=== PATIENT | female | born 1970 | race Two or more races ===

== ENCOUNTER 2021-05-29 14:59 | Emergency (ER) | payer SELFPAY ==
[~2021-05-29] VITALS: Ht 167.6 cm; Wt 90.0 kg
[2021-05-29] MEDS ORDERED: KETOROLAC 30 MG/ML VIAL. IVP ONE (19:30)
[2021-05-29] MEDS ORDERED: ONDANSETRON PF 4 MG/2 ML VIAL. IVP ONE (19:30)
--- NOTE | 2021-05-29 19:38 | ED.ADGEN ---
Past Medical History Past Medical History: No Pertinent History Past Surgical History: No Surgical History Smoking Status: Never Smoker Alcohol Use: None General Adult EDM: Chief Complaint: ABDOMINAL PAIN HPI: HPI: Patient is a 50-year-old female presents to the emergency room complaining of the right upper quadrant abdominal pain that started around 10:00 this morning. Patient states it is been constant since onset. She has had pain like this previously but has been quite a while. She states that at that time she saw her primary care doctor who did an ultrasound which was normal. She states that she feels nauseous but has not had any vomiting. She denies diarrhea, constipation, fever, chills, sweats. She has not eaten anything this evening. She has not tried anything for pain. Nothing seems to make her pain better or worse. Review of Systems: Review of Systems: Complete ROS is negative unless otherwise documented in HPI Current Medications: Current Medications Medications (Trade) Dose Ordered Sig/Best Start Time Stop Time Status Last Admin Dose Admin Info (CONTRAST GIVEN -- Rx MONITORING) 1 each PRN DAILY PRN 05/29/21 19:45 05/31/21 19:44 Iohexol (Omnipaque 240 Mg/ml) 40 ml 1X ONCE 05/29/21 19:45 05/29/21 19:46 DC 05/29/21 19:30 40 ML Iohexol (Omnipaque 300 Mg/ml) 75 ml 1X ONCE 05/29/21 19:45 05/29/21 19:46 DC 05/29/21 20:40 75 ML Ketorolac Tromethamine (Toradol 30mg Vial) 30 mg 1X ONCE 05/29/21 19:30 05/29/21 19:31 DC 05/29/21 20:05 30 MG Ondansetron HCl (Zofran) 4 mg 1X ONCE 05/29/21 19:30 05/29/21 19:31 DC 05/29/21 20:04 4 MG Allergies: Allergies: Allergies Coded Allergies Type Severity Reaction Last Updated Verified No Known Medication Allergies Allergy Unknown 01/29/16 Yes Physical Exam: PE: General: Awake, alert, NAD. Well Nourished, well hydrated. Cooperative HEENT: Atraumatic, EOMI, PERRL, airway patent, moist oral mucosa Neck: Supple, trachea midline Respiratory: CTA bilaterally, normal effort, no wheezing/crackles CV: RRR, no murmur, cap refill <2 GI: Soft, nondistended, nontender, no masses MSK: No obvious deformities Skin: Warm, dry, intact Neuro: A&O x3, speech NL, sensory and motor grossly intact, no focal deficits Psych: Normal affect, normal mood, not suicidal or homicidal Current Patient Data: Labs: Laboratory Tests Test 05/29/21 19:22 05/29/21 19:33 05/29/21 19:40 Urine Collection Type Unknown Urine Color Yellow Urine Clarity Cloudy Urine pH 6.0 (<5.0-8.0) Urine Specific [place] 1.020 (1.000-1.030) Urine Protein Negative mg/dL (NEG-TRACE) Urine Glucose (UA) Negative mg/dL (NEG) Urine Ketones (Stick) Trace mg/dL (NEG) Urine Blood Large (NEG) Urine Nitrite Negative (NEG) Urine Bilirubin Negative (NEG) Urine Urobilinogen Dipstick 0.2 mg/dL (0.2 mg/dL) Urine Leukocyte Esterase Negative (NEG) Urine RBC 3-5 /HPF (0-2) Urine WBC Occ /HPF (0-4) Urine Squamous Epithelial Cells Many /LPF Urine Bacteria Few /HPF (0-FEW) Urine Mucus Marked /LPF Urine Yeast Present /HPF White Blood Count 10.5 x10^3/uL (4.0-11.0) Red Blood Count 4.65 x10^6/uL (3.50-5.40) Hemoglobin 12.8 g/dL (12.0-15.5) Hematocrit 38.1 % (36.0-47.0) Mean Corpuscular Volume 82 fL (79-100) Mean Corpuscular Hemoglobin 28 pg (25-35) Mean Corpuscular Hemoglobin Concent 34 g/dL (31-37) Red Cell Distribution Width 14.7 % (11.5-14.5) H Platelet Count 267 x10^3/uL (140-400) Neutrophils (%) (Auto) 70 % (31-73) Lymphocytes (%) (Auto) 21 % (24-48) L Monocytes (%) (Auto) 6 % (0-9) Eosinophils (%) (Auto) 2 % (0-3) Basophils (%) (Auto) 1 % (0-3) Neutrophils # (Auto) 7.4 x10^3/uL (1.8-7.7) Lymphocytes # (Auto) 2.2 x10^3/uL (1.0-4.8) Monocytes # (Auto) 0.6 x10^3/uL (0.0-1.1) Eosinophils # (Auto) 0.2 x10^3/uL (0.0-0.7) Basophils # (Auto) 0.1 x10^3/uL (0.0-0.2) Sodium Level 139 mmol/L (136-145) Potassium Level 3.7 mmol/L (3.5-5.1) Chloride Level 102 mmol/L (98-107) Carbon Dioxide Level 29 mmol/L (21-32) Anion Gap 8 (6-14) Blood Urea Nitrogen 8 mg/dL (7-20) Creatinine 0.8 mg/dL (0.6-1.0) Estimated GFR (Cockcroft-Gault) 75.6 BUN/Creatinine Ratio 10 (6-20) Glucose Level 135 mg/dL (70-99) H Calcium Level 8.7 mg/dL (8.5-10.1) Total Bilirubin 0.7 mg/dL (0.2-1.0) Aspartate Amino Transferase (AST) 26 U/L (15-37) Alanine Aminotransferase (ALT) 51 U/L (14-59) Alkaline Phosphatase 104 U/L (46-116) Total Protein 7.4 g/dL (6.4-8.2) Albumin 4.1 g/dL (3.4-5.0) Albumin/Globulin Ratio 1.2 (1.0-1.7) Lipase 46 U/L (73-393) L POC Urine HCG, Qualitative Hcg negative (Negative) Laboratory Tests 05/29/21 19:33 Laboratory Tests 05/29/21 19:33 Vital Signs: Vital Signs Date Time Temp Pulse Resp B/P (MAP) Pulse Ox O2 Delivery O2 Flow Rate FiO2 05/29/21 21:06 76 125/83 (97) 98 05/29/21 19:05 98.6 20 Room Air 98.6 EKG: EKG: [] Heart Score: C/O Chest Pain: N/A Risk Factors: Risk Factors: DM, Current or recent (<one month) smoker, HTN, HLP, family history of CAD, obesity. Risk Scores: Score 0 - 3: 2.5% MACE over next 6 weeks - Discharge Home Score 4 - 6: 20.3% MACE over next 6 weeks - Admit for Clinical Observation Score 7 - 10: 72.7% MACE over next 6 weeks - Early Invasive Strategies Radiology/Procedures: Radiology/Procedures: [] Course & Med Decision Making: Course & Med Decision Making Pertinent Labs and Imaging studies reviewed. (See chart for details) Patient is 50-year-old female presents to the emergency room complaining of right upper quadrant and right flank pain that started this morning has been constant since onset. Patient will be given Toradol and Zofran here in the emergency room. She has normal vitals and is well-appearing. CT will be done to rule out kidney stone and gallbladder pathology. Abdominal lab work including liver enzymes and lipase were ordered. Work-up was unremarkable. Patient is feeling much better. Patient's test results and vitals while in the ED were fully reviewed and discussed with the patient. Patient is stable and at this time does not need admission to the hospital. We have discussed strict return precautions and the importance of following up with their Primary Care Physician. Patient stated understanding and was given an opportunity to ask any questions. Patient is in agreement with plan. Dragon Disclaimer: Roland Disclaimer: This electronic medical record was generated, in whole or in part, using a voice recognition dictation system. Departure Departure Impression: Primary Impression: Abdominal pain Disposition: HOME / SELF CARE / HOMELESS Condition: STABLE Referrals: UNKNOWN PCP NAME (PCP) Patient Instructions: Abdominal Pain Scripts No Active Prescriptions or Reported Meds AUDREY HERNÁNDEZ MD May 29, 2021 19:37
[2021-05-29 19:43] LABS: BASO # 0.1 x10^3/uL (0.0-0.2); BASO % 1 % (0-3); EOS # 0.2 x10^3/uL (0.0-0.7); EOS % 2 % (0-3); HEMATOCRIT 38.1 % (36.0-47.0); HEMOGLOBIN 12.8 g/dL (12.0-15.5); LYMPH # 2.2 x10^3/uL (1.0-4.8); LYMPH % 21 % (24-48); MEAN CORPUSCULAR HEMOGLOBIN 28 pg (25-35); MEAN CORPUSCULAR HGB CONC 34 g/dL (31-37); MEAN CORPUSCULAR VOLUME 82 fL (79-100); MONO # 0.6 x10^3/uL (0.0-1.1); MONO % 6 % (0-9); NEUT # 7.4 x10^3/uL (1.8-7.7); NEUT % 70 % (31-73); PLATELET COUNT 267 x10^3/uL (140-400); RED BLOOD COUNT 4.65 x10^6/uL (3.50-5.40); RED CELL DISTRIBUTION WIDTH 14.7 % (11.5-14.5); WHITE BLOOD COUNT 10.5 x10^3/uL (4.0-11.0)
[2021-05-29 19:44] LABS: BILIRUBIN,URINE NEGATIVE (NEG); CLARITY,URINE CLOUDY; COLOR,URINE YELLOW; NITRITE,URINE NEGATIVE (NEG); PROTEIN,URINE NEGATIVE (NEG-TRACE); UROBILINOGEN,URINE 0.2 mg/dL (0.2 mg/dL)
[2021-05-29] MEDS ORDERED: IOHEXOL 240 MG/ML 50ML VIAL. PO ONE (19:45)
[2021-05-29] MEDS ORDERED: CONTRAST GIVEN. MC PRN (19:45)
[2021-05-29] MEDS ORDERED: IOHEXOL 300 MG/ML 100ML VIAL. IV ONE (19:45)
[2021-05-29 19:52] LABS: CALCIUM 8.7 mg/dL (8.5-10.1); CREATININE 0.8 mg/dL (0.6-1.0); GFR 75.6; POTASSIUM 3.7 mmol/L (3.5-5.1)
[2021-05-29 19:52] LABS: BACTERIA,URINE FEW /HPF (0-FEW); WBC,URINE OCC /HPF (0-4)
[2021-05-29 19:55] LABS: YEAST,URINE PRESENT /HPF
[2021-05-29 19:58] LABS: ALBUMIN 4.1 g/dL (3.4-5.0); ALBUMIN/GLOBULIN RATIO 1.2 (1.0-1.7); TOTAL BILIRUBIN 0.7 mg/dL (0.2-1.0); TOTAL PROTEIN 7.4 g/dL (6.4-8.2)
[2021-05-29 21:06] VITALS: BP 125/83
--- NOTE | 2021-05-29 22:22 | RAD ---
CT abdomen pelvis with contrast. HISTORY: Right upper quadrant pain CT abdomen pelvis was done using 75 in now measuring 300 contrast. Lung bases are clear except for mi ld atelectasis. Liver is normal in appearance. There is no calcified gallstone. Spleen and adrenal gl ands are normal. Pancreas is unremarkable. There is no mass or hydronephrosis in the kidneys. A urete ral calculus is not identified. There is no bowel obstruction. Uterus and ovaries are unremarkable. T here is no free fluid in the pelvis. There is stool versus thickening of the wall of the cecum. The a ppendix is not identified. I do not see inflammation to suggest an acute appendicitis. IMPRESSION: 1. Appendix not identified, inflammation to suggest appendicitis is not identified 2. Probable stool versus thickening of the wall at the cecum. 3. No small bowel obstruction. 4. No renal or ureteral calculus. 5. No gallbladder wall thickening. PQRS Compliance Statement: One or more of the following individualized dose reduction techniques were utilized for this examinat ion: 1. Automated exposure control 2. Adjustment of the mA and/or kV according to patient size 3. Use of iterative reconstruction technique Electronically signed by: Edil Donald MD (05/29/2021 10:19 PM) [facility]
== END 2021-05-29 23:40 | disposition home or self-care (01) ==
LOC: ER 14:59
DX: R10.11 Right upper quadrant pain (principal); R11.0 Nausea
CPT/HCPCS: 36415; 74177; 80053; 81001; 81025; 83690; 85025; 96374; 96375; 99285; J1885; J2405; Q9966; Q9967